=== PATIENT | male | born 1980 | race Caucasian/White ===

== ENCOUNTER 2017-11-05 21:25 | Emergency (ER) | payer OTHER ==
[~2017-11-05] VITALS: Ht 160 cm; Wt 70.0 kg
[2017-11-05 21:28] VITALS: Ht 160 cm; Wt 70.0 kg
--- NOTE | 2017-11-05 22:00 | ERD ---
ER Documentation Chief Complaint Chief Complaint Lower back pain x 1 week, dysuria, HPI 37-year-old male presents here in emergency department lower back pain dysuria pelvic pain that started 1 week ago. Patient describes the pain as sharp pain, 6/10, accompanied with dysuria. Patient denies any hematuria. ROS All systems reviewed and are negative except as per history of present illness. Medications Home Meds Reported Medications [none] Unknown Strength No Conflict Check 11/05/17 Allergies Allergies: Coded Allergies: No Known Allergy (Unverified , 02/12/13) PMhx/Soc History of Surgery: Yes (L Inguinal hernia Repair) Anesthesia Reaction: No Hx Neurological Disorder: No Hx Respiratory Disorders: No Hx Cardiac Disorders: No Hx Psychiatric Problems: Yes (Opium Addiction/Withdrawal) Hx Miscellaneous Medical Probl: No Hx Alcohol Use: No Hx Substance Use: Yes (Opium,Methadone) Hx Tobacco Use: Yes (10 sticks/day) Smoking Status: Current every day smoker FmHx Family History: No coronary disease, No diabetes, No other Physical Exam Vitals Vital Signs Date Time Temp Pulse Resp B/P Pulse Ox O2 Delivery O2 Flow Rate FiO2 11/05/17 21:28 98.7 90 20 132/88 99 Physical Exam GENERAL: The patient is well developed and appropriate for usual state of health, in no apparent distress. CHEST: Clear to auscultation bilaterally. There are no rales, wheezes or rhonchi. HEART: Regular rate and rhythm. No murmurs, clicks, rubs or gallops. No S3 or S4. ABDOMEN: Soft, nontender and nondistended. Good bowel sounds. No rebound or guarding. No gross peritonitis. No gross organomegaly or masses. No Feliz sign or McBurney point tenderness. BACK: No midline or flank tenderness. EXTREMITIES: Equal pulses bilaterally. There is no peripheral clubbing, cyanosis or edema. No focal swelling or erythema. Full range of motion. Grossly neurovascularly intact. NEURO: Alert and oriented. Cranial nerves 2-12 intact. Motor strength in all 4 extremities with 5/5 strength. Sensation grossly intact. Normal speech and gait. SKIN: There is no apparent rash or petechia. The skin is warm and dry. HEMATOLOGIC AND LYMPHATIC: There is no evidence of excessive bruising or lymphedema. No gross cervical, axillary, or inguinal lymphadenopathy. Result Diagram: 11/05/17220111/05/172201 Results 24 hrs Laboratory Tests Test 11/05/17 22:02 White Blood Count 11.610^3/ul Red Blood Count 5.1510^6/ul Hemoglobin 14.7g/dl Hematocrit 43.8% Mean Corpuscular Volume 85.0fl Mean Corpuscular Hemoglobin 28.5pg Mean Corpuscular Hemoglobin Concent 33.6g/dl Red Cell Distribution Width 13.0% Platelet Count 70856^3/UL Mean Platelet Volume 9.8fl Neutrophils % 67.7% Lymphocytes % 24.6% Monocytes % 6.0% Eosinophils % 1.1% Basophils % 0.3% Nucleated Red Blood Cells % 0.0/100WBC Neutrophils # 7.910^3/ul Lymphocytes # 2.910^3/ul Monocytes # 0.710^3/ul Eosinophils # 0.110^3/ul Basophils # 0.010^3/ul Nucleated Red Blood Cells # 0.010^3/ul Sodium Level 141mmol/L Potassium Level 4.0mmol/L Chloride Level 99mmol/L Carbon Dioxide Level 29mmol/L Anion Gap 17 Blood Urea Nitrogen 13mg/dl Creatinine 0.78mg/dl Glucose Level 91mg/dl Calcium Level 9.4mg/dl Total Bilirubin 0.4mg/dl Direct Bilirubin 0.00mg/dl Indirect Bilirubin 0.4mg/dl Aspartate Amino Transf (AST/SGOT) 26IU/L Alanine Aminotransferase (ALT/SGPT) 35IU/L Alkaline Phosphatase 76IU/L Total Protein 7.5g/dl Albumin 4.0g/dl Globulin 3.50g/dl Albumin/Globulin Ratio 1.14 Lipase 24U/L Procedures/[facility] Medical Decision Making: Patient symptoms nonspecific at this time, can be musculoskeletal pain, patient is unable to provide urine, and laboratory test does not show any leukocytosis or bandemia, no electrolyte imbalance, lipase is normal. Patient refused imaging. There is low suspicion for abdominal emergencies at this time. Patients abdominal exam is normal at this time. There is low suspicion for appendicitis, cholecystitis, abdominal aortic aneurysms or peritonitis at this time. There is low suspicion for sepsis. Patient appears well and is hemodynamically stable. Patient eloped prior to radiology exams and urine test results. Patient was ambulatory upon walking out of the department per nurse, patient was tried to be contacted, unable to reach at this time. Disposition: Eloped. Disclaimer: Inadvertent spelling and grammatical errors are likely due to EHR/ dictation software use and do not reflect on the overall quality of patient care. Also, please note that the electronic time recorded on this note does not necessarily reflect the actual time of the patient encounter. Departure Diagnosis: Primary Impression: Flank pain Condition: Stable LENA MORALES NP Nov 05, 2017 22:00 LENA MORALES NP Nov 05, 2017 22:00
[2017-11-05 22:28] LABS: BASOPHILS % 0.3 % (0.0-2.0); EOSINOPHILS # 0.1 10^3/ul (0.0-0.5); EOSINOPHILS % 1.1 % (0.0-7.0); HEMATOCRIT 43.8 % (42.0-52.0); HEMOGLOBIN 14.7 g/dl (14.0-18.0); LYMPHOCYTES # 2.9 10^3/ul (0.8-2.9); LYMPHOCYTES % 24.6 % (15.0-51.0); MEAN CORPUSCULAR HEMOGLOBIN 28.5 pg (29.0-33.0); MEAN CORPUSCULAR HGB CONC 33.6 g/dl (32.0-37.0); MEAN PLATELET VOLUME 9.8 fl (7.4-10.4); MONOCYTE # 0.7 10^3/ul (0.3-0.9); NEUTROPHIL # 7.9 10^3/ul (1.6-7.5); NEUTROPHILS % 67.7 % (39.0-77.0); PLATELET COUNT 267 10^3/UL (140-415); RED BLOOD COUNT 5.15 10^6/ul (4.70-6.10); WHITE BLOOD COUNT 11.6 10^3/ul (4.8-10.8)
[2017-11-05 22:50] LABS: ALBUMIN/GLOBULIN RATIO 1.14; BILIRUBIN,INDIRECT 0.4 mg/dl (0-1.1); BILIRUBIN,TOTAL 0.4 mg/dl (0.2-1.3); CALCIUM 9.4 mg/dl (8.4-10.2); CREATININE 0.78 mg/dl (0.61-1.24); TOTAL PROTEIN 7.5 g/dl (6.1-8.1)
== END 2017-11-05 22:30 | disposition left against medical advice (07) ==
LOC: FTE 21:25
DX: R10.2 Pelvic and perineal pain (principal); F17.210 Nicotine dependence, cigarettes, uncomplicated
CPT/HCPCS: 80053; 83690; 85025; Z7502; 99283